=== PATIENT | female | born 1990 ===

== ENCOUNTER 2017-03-21 10:28 | Inpatient (IN) | payer BC ==
[~2017-03-21] VITALS: Ht 167.6 cm; Wt 72.7 kg
[2017-05-21] VITALS (7 sets, daily range): BP systolic 109–131; BP diastolic 66–87; PULSE 88–114; TEMP 97.5
[2017-05-21] MEDS ORDERED: PRENATAL MVI (19:59)
[2017-05-21 20:40] LABS: BASO % 0.3 % (0.0-2.0); EOS % 0.3 % (0-4.0); GRAN % 76.8 % (42.2-75.2); HEMOGLOBIN 12.6 g/dl (12.5-16.0); LYMPH # 1.8 (1.2-3.4); LYMPH % 15.1 % (20.0-51.0); MEAN CELL VOLUME 97 fl (80.0-100.0); MEAN CORPUSCULAR HEMOGLOBIN 35 pg (27.0-31.0); MEAN CORPUSCULAR HGB CONC 36 g/dl (33.0-37.0); MEAN PLATELET VOLUME 11.5 fl (7.4-10.4); MONO # 0.8 (0.1-0.6); MONO % 6.8 % (1.7-9.3); PLATELET COUNT 225 K/mm3 (130-400); RED BLOOD COUNT 3.63 M/mm3 (4.10-5.30); REDCELL DISTRIBUTION WIDTH-CV 12.9 % (11.5-14.5)
[2017-05-21 20:43] LABS: HEMATOCRIT 35.3 % (37.0-47.0)
[2017-05-22] VITALS (51 sets, daily range): BP systolic 93–143; BP diastolic 62–91; PULSE 71–148; TEMP 97.6–148
[2017-05-23 03:20] VITALS: BP 106/66; PULSE 88; TEMP 97.6
[2017-05-23 09:45] VITALS: BP 113/72; PULSE 104; TEMP 97.5
[2017-05-23 12:45] VITALS: BP 120/77; PULSE 97; TEMP 97.5
[2017-05-23] MEDS ORDERED: IBU800 M1 PO (14:13)
[2017-05-23 17:30] VITALS: BP 111/72; PULSE 104; TEMP 97.1
[2017-05-23 21:30] VITALS: BP 120/72; PULSE 92; TEMP 97.7
[2017-05-24 07:00] VITALS: BP 116/70; PULSE 70; TEMP 98.1
== END 2017-05-24 10:20 | disposition home or self-care (01) | DRG 775 ==
LOC: EDSTATUS 05-17 07:11 → LDRO 05-17 10:27 → LDR 05-21 07:12 → OB 05-21 19:02 → LDR 05-21 19:02 → OB 05-22 21:00
PROVIDERS: Student in an Organized Health Care Education/Training Program
PROC: 10E0XZZ Delivery of Products of Conception, External Approach (ICD-10-PCS; principal; 2017-05-22)
PROC: 0KQM0ZZ Repair Perineum Muscle, Open Approach (ICD-10-PCS; 2017-05-22)
DX: O48.0 Post-term pregnancy (principal); O69.81X0 Labor and delivery complicated by cord around neck, without compression, not applicable or unspecified; O70.1 Second degree perineal laceration during delivery; Z85.820 Personal history of malignant melanoma of skin; Z3A.40 40 weeks gestation of pregnancy; Z37.0 Single live birth
CPT/HCPCS: J2590; J7120

== ENCOUNTER 2019-01-12 07:02 | Inpatient (IN) | payer BC ==
[2019-01-12] VITALS (40 sets, daily range): BP systolic 119–158; BP diastolic 60–97; PULSE 77–103; TEMP 97.9–98.5
[~2019-01-12] VITALS: Ht 167.6 cm; Wt 72.7 kg
[~2019-01-12 07:02] MED LIST: IBU800 M1 PO; PRENATAL MVI
--- NOTE | 2019-01-12 07:15 | NUR ---
PATIENT HERE FOR INDUCTION TO LABOR ROOM 4. PATIENT DENIES CONTRACTIONS, LEAKING OF FLUID OR BLEEDING. PATIENT CHANGED INTO GOWN, ON EFM. VITALS OBTAINED, ASSESMENT COMPLETE, IV STARTED, CONSENTS SIGNED. QUESTIONS ANSWERED.
[2019-01-12 08:10] LABS: BASO % 0.3 % (0.0-2.0); EOS # 0.1 (0.0-0.7); EOS % 0.6 % (0-4.0); GRAN % 68.4 % (42.2-75.2); HEMATOCRIT 33.7 % (37.0-47.0); HEMOGLOBIN 11.8 g/dl (12.5-16.0); LYMPH # 1.9 (1.2-3.4); LYMPH % 21.7 % (20.0-51.0); MEAN CELL VOLUME 97 fl (80.0-100.0); MEAN CORPUSCULAR HEMOGLOBIN 34 pg (27.0-31.0); MEAN CORPUSCULAR HGB CONC 35 g/dl (33.0-37.0); MONO # 0.7 (0.1-0.6); MONO % 8.4 % (1.7-9.3); PLATELET COUNT 216 K/mm3 (130-400); RED BLOOD COUNT 3.48 M/mm3 (4.10-5.30); REDCELL DISTRIBUTION WIDTH-CV 12.8 % (11.5-14.5)
[2019-01-13] VITALS (8 sets, daily range): BP systolic 127–151; BP diastolic 87–98; PULSE 70–97; TEMP 97.6–98.6
[2019-01-13] MEDS ORDERED: IBU800 M1 PO (09:05)
--- NOTE | 2019-01-13 12:19 | NUR ---
stopped by but nothing needed at this time.
[2019-01-14 03:00] VITALS: BP 121/82; PULSE 72; TEMP 98.1
[2019-01-14 09:05] VITALS: BP 124/91; PULSE 85; TEMP 98.1
== END 2019-01-14 11:10 | disposition home or self-care (01) | DRG 807 ==
LOC: LDR 07:02 → OB 17:30
PROVIDERS: ADMIT Student in an Organized Health Care Education/Training Program
PROC: 10E0XZZ Delivery of Products of Conception, External Approach (ICD-10-PCS; principal; 2019-01-12)
PROC: 0KQM0ZZ Repair Perineum Muscle, Open Approach (ICD-10-PCS; 2019-01-12)
PROC: 3E033VJ Introduction of Other Hormone into Peripheral Vein, Percutaneous Approach (ICD-10-PCS; 2019-01-12)
PROC: 10907ZC Drainage of Amniotic Fluid, Therapeutic from Products of Conception, Via Natural or Artificial Opening (ICD-10-PCS; 2019-01-12)
PROC: 3E0R3BZ Introduction of Anesthetic Agent into Spinal Canal, Percutaneous Approach (ICD-10-PCS; 2019-01-12)
DX: O99.824 Streptococcus B carrier state complicating childbirth (principal); Z37.0 Single live birth; O13.4 Gestational [pregnancy-induced] hypertension without significant proteinuria, complicating childbirth; Z3A.39 39 weeks gestation of pregnancy; O22.43 Hemorrhoids in pregnancy, third trimester; O70.1 Second degree perineal laceration during delivery; Z85.820 Personal history of malignant melanoma of skin; O76 Abnormality in fetal heart rate and rhythm complicating labor and delivery
CPT/HCPCS: J2540; J2590; J7120

== ENCOUNTER 2020-12-15 19:16 | Inpatient (IN) | payer OTHER ==
[~2020-12-15] VITALS: Ht 167.6 cm; Wt 71.4 kg
[2020-12-15] VITALS (16 sets, daily range): BP systolic 89–132; BP diastolic 54–86; PULSE 86–142; TEMP 97.4–98
--- NOTE | 2020-12-15 19:25 | NUR ---
PT TO UNIT AMBULATORY WITH SPOUSE WITH COMPLAINTS OF CONTRACTIONS THAT HAVE BECOME MORE CONSISTENT AND INTENSE SINCE 1630 THIS AFTERNOON. PT ORIENTED TO ROOM, CHANGED INTO GOWN, VS OBTAINED, EFMX2 APPLIED, SVE PERFORMED.
--- NOTE | 2020-12-15 20:50 | NUR ---
2034- PT SITTING UP AT BEDSIDE FOR EPIDURAL PLACEMENT. 2035- Nohemi OCHOA CRNA IN ROOM FOR EPIDURAL PLACEMENT. 2044- TEST DOSE GIVEN BY Nohemi OCHOA CRNA, PT TOLERATED WELL. 2049- REPOSITIONED TO [facility].
[2020-12-15 20:55] LABS: BASO % 0.2 % (0.0-2.0); EOS % 0.1 % (0-4.0); GRAN # 13.8 (1.4-6.5); GRAN % 80.4 % (42.2-75.2); HEMOGLOBIN 12.7 g/dl (12.5-16.0); LYMPH # 1.7 (1.2-3.4); MEAN CELL VOLUME 98 fl (80.0-100.0); MEAN CORPUSCULAR HEMOGLOBIN 34 pg (27.0-31.0); MEAN CORPUSCULAR HGB CONC 35 g/dl (33.0-37.0); MONO # 1.5 (0.1-0.6); MONO % 8.8 % (1.7-9.3); PLATELET COUNT 250 K/mm3 (130-400); RED BLOOD COUNT 3.74 M/mm3 (4.10-5.30); REDCELL DISTRIBUTION WIDTH-CV 13.9 % (11.5-14.5)
[2020-12-15 20:56] LABS: HEMATOCRIT 36.8 % (37.0-47.0)
--- NOTE | 2020-12-15 21:40 | NUR ---
RECURRENT LATE DECELS NOTED, PT BP DOWN TO 91/55, PT ASYMPTOMATIC. EPHEDRINE 10MG GIVEN IV. AFTER APPROXIMATELY 5 MINUTES BP REMAINS LOW AT 89/54, 2ND DOSE OF 10MG EPHEDRINE GIVEN IV. APPROXIMATELY 4 MINUTES LATER BP IMPROVED TO 122/71. FHT'S ELEVATED FOLLOWING EPHEDRINE, BASELINE OF 180 WITH MINIMAL VARIABILITY, NO FURTHER DECELS AT THIS TIME. DR. BRAGG ON UNIT AT APPROXIMATELY 2135, NOTIFIED OF TACHYCARDIA FOLLOWING EPHEDRINE ADMINISTRATION, SVE CURRENTLY 7-8/90/-2. DR BRAGG IN ROOM, PERFORMS AROM AT 2137, MEC FLUID NOTED, SVE UNCHANGED.
[2020-12-15] MEDS ORDERED: NATURAL IRON65 MG PO (22:32)
--- NOTE | 2020-12-15 22:45 | NUR ---
DR. BRAGG IN ROOM TO EVALUATE PT FHT'S AND MATERNAL HR BOTH TACHYCARDIC, PT REMAINS AFEBRILE. SVE PERFORMED, +, DR. BRAGG AROM OF FOREBAG, MEC FLUID NOTED. CONTINUE WITH PLAN OF CARE.
--- NOTE | 2020-12-15 22:51 | NUR ---
REMAINS ON UNIT, ORDERS PITOCIN TO BE STARTED AT THIS TIME AT 2 MU/HR AND INCREASED BY 2 MU EVERY 15 MINUTES UNTIL CONTRACTION PATTERN IS EVERY 2-3 MINUTES.
--- NOTE | 2020-12-15 23:25 | NUR ---
PT STATES SHE IS FEELING PRESSURE. THIS NURSE IN ROOM, SVE PERFORMED, ANTERIOR LIP NOTED THAT CAN BE REDUCED. 3 LARGE GUSHES OF BLOODY FLUID WITH SEVERAL QUARTER SIZED CLOTS NOTED WITH EXAM. DR. BRAGG NOTIFIED AT 2327 OF EXAM AND CHANGES IN FLUID COLOR. WILL COME EVALUATE PT.
--- NOTE | 2020-12-15 23:47 | NUR ---
2330- DR. BRAGG IN ROOM TO EVALUATE PT, SVE OF COMPLETE/+1. 2332- BENAVIDES DC'D, 325MLS URINE OUT. 2340- PT BEGINS PUSHING WITH DR. BRAGG, PUSHING WELL. SPONTANEOUS VAGINAL DELIVERY OF VIABLE BABY BOY. BABY TO MOTHER'S ABDOMEN,BABY DRIED AND STIMULATED. CORD CLAMPED BY DR. BRAGG AND CUT BY FOB. BABY CARES ASSUMED BY Dorene CHANDRA RN. 2347- SPONTANEOUS DELIVERY OF INTACT PLACENTA, PITOCIN STARTED AT 333ML/HR PER PROTOCOL. PT HAS ALLERGY TO VICRYL SUTURE, REPAIRS 2ND PERINEAL LACERATION WITH CHROMIC SUTURE. 2355- RECOVERY STARTED AT THIS TIME.
[2020-12-16] VITALS (9 sets, daily range): BP systolic 111–126; BP diastolic 61–77; PULSE 90–108; TEMP 97.8–98.8
--- NOTE | 2020-12-16 02:00 | NUR ---
0200 IV TO INT. UP TO BR WITH ASSIST AND VOIDED 400CC. PERICARE DONE. BECAME DIZZY. TO W/C AND TO ROOM 208. DAVID WELL.
[2020-12-16] MEDS ORDERED: IBU600 MG PO (09:03)
[2020-12-16] MEDS ORDERED: ADVOCATE BLOOD1 EAC1 MC (09:04)
[2020-12-16] MEDS ORDERED: PERCOCET 325 MG1 TA2 PO (09:09)
== END 2020-12-16 09:50 | disposition home or self-care (01) | DRG 807 ==
LOC: LDRO 19:16 → LDR 20:15 → OB 12-16 02:00
PROVIDERS: Obstetrics & Gynecology; ADMIT Student in an Organized Health Care Education/Training Program
PROC: 10E0XZZ Delivery of Products of Conception, External Approach (ICD-10-PCS; principal; 2020-12-16)
PROC: 0KQM0ZZ Repair Perineum Muscle, Open Approach (ICD-10-PCS; 2020-12-16)
DX: O99.02 Anemia complicating childbirth (principal); Z37.0 Single live birth; D64.9 Anemia, unspecified; O77.0 Labor and delivery complicated by meconium in amniotic fluid; O76 Abnormality in fetal heart rate and rhythm complicating labor and delivery; O70.1 Second degree perineal laceration during delivery; Z3A.38 38 weeks gestation of pregnancy; Z86.16 Personal history of COVID-19
CPT/HCPCS: J2540; J2590; J7120